=== PATIENT | male | born 1965 | race Caucasian/White ===

== ENCOUNTER 2021-05-06 09:33 | Day surgery (SDC) | payer BC ==
[~2021-05-06 09:33] MED LIST: Lactated Ringers 1,000 ML IV SCH; Sodium Chloride 0.9% 10 ML Syringe FLUSH PRN
[2021-05-06] MEDS ORDERED: Propofol 200 MG/20 ML SDV ONE ×2 (10:53→11:52)
--- NOTE | 2021-05-06 11:54 | PCM.PN ---
- General Info Date of Service: 05/06/21 - Review of Systems Systems Review Comment:: 56-year-old male referred for colonoscopy. He has a history of colon polyps removed on previous colonoscopy. He denies any recent changes in bowel pattern. He is medically stable to proceed today. His recent history and physical is reviewed and no significant changes are noted. I have discussed the proposed colonoscopy with the patient. Risks such as but not limited to bleeding and GI injury reviewed. He agrees to proceed. - Patient Data Vitals - Most Recent: Last Vital Signs Temp 98.8 F 05/06/21 09:47 Pulse 97 05/06/21 09:47 Resp 20 05/06/21 09:47 BP 141/78 H 05/06/21 09:47 Pulse Ox 100 05/06/21 09:47 Weight - Most Recent: 99.79 kg Med Orders - Current: Current Medications Lactated Ringer's (Ringers, Lactated) 1,000 mls @ 125 mls/hr IV ASDIRECTED OWEN Last Admin: 05/06/21 10:08 Dose: 125 mls/hr Documented by: Sodium Chloride (Sodium Chloride 0.9% 10 Ml Syringe) 10 ml FLUSH ASDIRECTED PRN PRN Reason: Keep Vein Open Discontinued Medications Propofol (Propofol 200 Mg/20 Ml Sdv) Confirm Administered Dose 400 mg .ROUTE .STK-MED ONE Stop: 05/06/21 10:54 Sepsis Event Note - Focused Exam Vital Signs: Vital Signs Temp Pulse Resp BP Pulse Ox 05/06/21 09:47 98.8 F 97 20 141/78 H 100 - Problem List Review Problem List Initiated/Reviewed/Updated: Yes - Assessment Assessment:: History of colon polyps - Plan Plan:: Colonoscopy
--- NOTE | 2021-05-06 12:31 | PCM.OPNOTE ---
- General Post-Op/Procedure Note Date of Surgery/Procedure: 05/06/21 Operative Procedure(s): Colonoscopy with polypectomy Findings: Small polyp in proximal transverse colon Large external hemorrhoid Pre Op Diagnosis: History of colon polyps Post-Op Diagnosis: Colon polyp. Hemorrhoid Anesthesia Technique: MAC Primary Surgeon: Osman Arizmendi Pathology: Colon polyp EBL in mLs: 0 Complications: None Condition: Good
--- NOTE | 2021-05-06 14:44 | OR ---
Date of Procedure: 05/06/2021 PREOPERATIVE DIAGNOSIS: History of colon polyps. POSTOPERATIVE DIAGNOSES: 1. Colon polyp. 2. Hemorrhoid. OPERATION PERFORMED: Colonoscopy with polypectomy. INDICATIONS FOR SURGERY: This 56-year-old male has a known history of colon polyps. He comes today for surveillance colonoscopy. FINDINGS: Single polyp was noted on today's exam. It is a 6 mm semi- pedunculated polyp in the proximal transverse colon. The colon otherwise appears normal. The patient does have a large external hemorrhoid located on his left side at about the 4 o'clock position. DESCRIPTION OF PROCEDURE: The patient was taken to the operating room. He was given intravenous sedation, and with him in the left lateral decubitus position, digital rectal exam shows no rectal masses, although the hemorrhoid was identified. The Olympus colonoscope was inserted into the rectum. Retroflexed examination of the rectal canal was performed. The scope was then carefully advanced under direct visualization through the entire length of the colon until the cecum was reached. Cecal acquisition was confirmed by noting the normal internal cecal anatomy including the appendiceal orifice and the ileocecal valve. The cecum was carefully examined and then the scope was slowly withdrawn sequentially re-examining the colonic segments. In the proximal transverse colon, the above-described polyp was identified. It was removed with a cautery snare and retrieved into a polyp trap. Examination was then continued until the entire colon and rectum had been fully examined. The scope was removed and the patient was taken from the operating room in satisfactory condition. ESTIMATED BLOOD LOSS: 0. COMPLICATIONS: None. PROGNOSIS: Good. EMILY Arizmendi MD /[id number]
== END 2021-05-06 13:30 | disposition home or self-care (01) ==
LOC: LL.SDS 09:33
PROVIDERS: ATTEND Surgery
DX: Z12.11 Encounter for screening for malignant neoplasm of colon (principal); K64.4 Residual hemorrhoidal skin tags; D12.3 Benign neoplasm of transverse colon; E78.5 Hyperlipidemia, unspecified; I10 Essential (primary) hypertension; E66.01 Morbid (severe) obesity due to excess calories; E11.69 Type 2 diabetes mellitus with other specified complication; Z80.0 Family history of malignant neoplasm of digestive organs; Z68.35 Body mass index [BMI] 35.0-35.9, adult
CPT/HCPCS: 00811; J2704; J7120

== ENCOUNTER 2024-01-25 10:05 | Day surgery (SDC) | payer BC ==
[~2024-01-25 10:05] MED LIST changes: -Lactated Ringers 1,000 ML IV SCH; +Midazolam 1 MG/ML 2 ML SDV ONE; +Propofol 200 MG/20 ML SDV ONE
[2024-01-25] MEDS: Lactated Ringers 1,000 ML IV SCH (10:56)
== END 2024-01-25 13:26 | disposition home or self-care (01) ==
LOC: LL.SDS 10:05
PROVIDERS: ATTEND Surgery
DX: Z12.11 Encounter for screening for malignant neoplasm of colon (principal); K63.5 Polyp of colon; E11.59 Type 2 diabetes mellitus with other circulatory complications; I10 Essential (primary) hypertension; E78.5 Hyperlipidemia, unspecified; K21.9 Gastro-esophageal reflux disease without esophagitis; E66.9 Obesity, unspecified; Z68.37 Body mass index [BMI] 37.0-37.9, adult; Z86.010 Personal history of colon polyps
CPT/HCPCS: 00811; J2250; J2704; J7120

== ENCOUNTER 2025-09-06 15:28 | Emergency (ER) | payer BC ==
[2025-09-06] MEDS ORDERED: Naloxone 0.4 MG/ML SDV IVPUSH PRN (16:11)
[2025-09-06] MEDS: Ondansetron 4 MG/2 ML SDV IVPUSH ONE ×2 (16:18→18:36)
[2025-09-06] MEDS: Sodium Chloride 0.9% 10 ML Syringe FLUSH PRN (16:21)
[2025-09-06 16:40] LABS: BASOPHILS ABSOLUTE AUTO 0.00 K/uL (0.00-0.20); BASOPHILS PERCENT AUTO 0.0 % (0.0-2.0); EOSINOPHILS ABSOLUTE AUTO 0.00 K/uL (0.00-0.50); EOSINOPHILS PERCENT AUTO 0.0 % (0.0-5.0); IMMATURE GRAN ABSOLUTE AUTO 0.01 10^3/uL (0.00-0.04); IMMATURE GRAN PERCENT AUTO 0.1 % (0.0-0.4); LYMPHOCYTES ABSOLUTE AUTO 0.50 K/uL (0.50-3.50); LYMPHOCYTES PERCENT AUTO 3.5 % (10.0-50.0); MONOCYTES ABSOLUTE AUTO 0.63 K/uL (0.00-1.00); MONOCYTES PERCENT AUTO 4.4 % (2.0-14.0); NEUTROPHILS ABSOLUTE AUTO 13.25 K/uL (1.40-7.00); NEUTROPHILS PERCENT AUTO 92.0 % (45.0-80.0); PLATELET COUNT,PLT 234 K/uL (150-350); RED BLOOD CELL COUNT 5.87 M/uL (4.33-5.41); RED CELL DISTRIBUTION WIDTH 11.8 % (11.2-14.1); WHITE BLOOD CELL COUNT,WBC 14.4 K/uL (4.0-10.2)
[2025-09-06 16:41] LABS: LACTIC ACID 2.4 mmol/L (0.4-2.0)
[2025-09-06 16:45] LABS: ALANINE AMINOTRANSFERASE,ALT 19.0 U/L (12-78); ASPARTATE AMNIOTRANSFERASE,AST 6.0 U/L (15-37); BILIRUBIN TOTAL 1.8 mg/dL (0.2-1.0); BLOOD UREA NITROGEN,BUN 22.0 mg/dL (7-18); CARBON DIOXIDE,CO2 22.0 mmol/L (21.0-32.0); CHLORIDE,CL 95.0 mmol/L (98-107); CREATININE 1.56 mg/dL (0.51-1.17); EST CRCL DRUG DOSING (CG) 53.89 mL/min; ESTIMATED GFR 50.0 mL/min (>=60); GLUCOSE RANDOM 291.0 mg/dL (70-99); POTASSIUM,K 4.1 mmol/L (3.5-5.1); PROTEIN TOTAL,TP 7.6 g/dL (6.4-8.2); SODIUM,NA 129.0 mmol/L (136-145)
[2025-09-06] MEDS: Alum Hydrox/Mag Hydrox/Simeth 30 ML, Lidocaine 2% 15 ML PO ONE (16:54)
[2025-09-06] MEDS: Iopamidol 612 MG/ML 100 ML Bottle IVPUSH STA (17:25)
== END 2025-09-06 19:55 ==
LOC: LL.ED 15:28
DX: K35.32 Acute appendicitis with perforation, localized peritonitis, and gangrene, without abscess (principal); I10 Essential (primary) hypertension; E78.00 Pure hypercholesterolemia, unspecified; K21.9 Gastro-esophageal reflux disease without esophagitis; E11.9 Type 2 diabetes mellitus without complications; Z79.84 Long term (current) use of oral hypoglycemic drugs; Z79.82 Long term (current) use of aspirin; Z79.899 Other long term (current) drug therapy
CPT/HCPCS: 36415; 74019; 74177; 80053; 83605; 83690; 83735; 85025; 96361; 96365; 96375; 96376; 99284; 99285-25; A9270-GY; J1171; J2405; J2543; J7030; Q9967